=== PATIENT | female | born 1975 | race Caucasian/White ===

== ENCOUNTER → 2018-03-23 | Outpatient (CLI) | payer BC, OTHER ==
[~2018-03-23] MED LIST: GASTROGRAFIN SOLUTION 30ML (Q9963) As Ordered; ISOVUE-370 76% 100ML VIAL (Q9967) As Ordered
== END ==
LOC: M RAD 12:07
DX: R59.0 Localized enlarged lymph nodes (principal); C21.0 Malignant neoplasm of anus, unspecified; K62.5 Hemorrhage of anus and rectum
CPT/HCPCS: Q9963

== ENCOUNTER 2018-04-06 09:38 | Day surgery (SDC) | payer BC, OTHER ==
[2018-04-06] MEDS: NS 1,000 ML IV ×2 (09:53→09:57)
[2018-04-06] MEDS ORDERED: PROPOFOL 200 MG/20 ML VIAL As Ordered ×3 (10:23→11:21)
[2018-04-06] MEDS ORDERED: LIDOCAINE 2% INJ 100 MG/5 ML SDV (FOR ANES.) As Ordered (10:24)
[2018-04-06] MEDS ORDERED: fentaNYL 100 MCG/2 ML INJECTION (J3010) As Ordered (10:28)
== END 2018-04-06 12:28 | disposition home or self-care (01) ==
LOC: M OPP 09:38
DX: K62.5 Hemorrhage of anus and rectum (principal); K64.8 Other hemorrhoids; R10.13 Epigastric pain; K31.89 Other diseases of stomach and duodenum; K29.70 Gastritis, unspecified, without bleeding; K21.9 Gastro-esophageal reflux disease without esophagitis; I95.9 Hypotension, unspecified; C21.0 Malignant neoplasm of anus, unspecified; R23.3 Spontaneous ecchymoses; R87.810 Cervical high risk human papillomavirus (HPV) DNA test positive; M19.90 Unspecified osteoarthritis, unspecified site; F31.9 Bipolar disorder, unspecified; G43.909 Migraine, unspecified, not intractable, without status migrainosus; F90.9 Attention-deficit hyperactivity disorder, unspecified type; R59.9 Enlarged lymph nodes, unspecified; Z86.711 Personal history of pulmonary embolism; G47.8 Other sleep disorders; R06.83 Snoring; N80.9 Endometriosis, unspecified; Z87.442 Personal history of urinary calculi; Z87.440 Personal history of urinary (tract) infections; F17.210 Nicotine dependence, cigarettes, uncomplicated; F12.10 Cannabis abuse, uncomplicated; Z88.2 Allergy status to sulfonamides; Z91.040 Latex allergy status; Z79.899 Other long term (current) drug therapy
CPT/HCPCS: 45378

== ENCOUNTER → 2018-07-02 | Outpatient (CLI) | payer BC, OTHER ==
[~2018-07-02] MED LIST changes: +ADDE1TAB14 PO; +BUSP10TA PO; +CITA20TA4 PO; -GASTROGRAFIN SOLUTION 30ML (Q9963) As Ordered; +IBUP200C25 PO; -ISOVUE-370 76% 100ML VIAL (Q9967) As Ordered; +TRAZ-186 PO; +TYLE500T78 PO
== END ==
LOC: M EKG 09:22
PROVIDERS: ATTEND Registered Nurse
DX: I49.9 Cardiac arrhythmia, unspecified (principal)

== ENCOUNTER 2018-10-01 11:53 | Day surgery (SDC) | payer BC, OTHER ==
[~2018-10-01] VITALS: Ht 170.2 cm; Wt 71.7 kg
[~2018-10-01 11:53] MED LIST changes: +ACET-897 PO; +CELE10TA PO; -CITA20TA4 PO; +CITA20TA6 PO; +CLEN1SOL; +GABA-843 PO; +GABA600T4 PO; +NS 1,000 ML IV ONE; +PROT20TA11 PO; +ZOFR4TAB16 PO
--- NOTE | 2018-10-01 15:24 | ROOR ---
Patient Name: Maura Calero Procedure Date: 10/01/2018 2:21 PM Date of : 1975 Age: 43 Room: [facility] Gender: Female Note Status: Finalized Procedure: Upper GI endoscopy Indications: Dysphagia, Exclusion of Aquino's esophagus Providers: Casimiro Gee MD Referring MD: Ramonita Acevedo NP Requesting Provider: Medicines: Monitored Anesthesia Care Complications: No immediate complications. Procedure: Pre-Anesthesia Assessment: - Prior to the procedure, a History and Physical was performed, and patient medications and allergies were reviewed. The patient is competent. The risks and benefits of the procedure and the sedation options and risks were discussed with the patient. All questions were answered and informed consent was obtained. Patient identification and proposed procedure were verified by the physician, the nurse and the anesthesiologist in the procedure room. Mental Status Examination: alert and oriented. Airway Examination: normal oropharyngeal airway and neck mobility. Respiratory Examination: clear to auscultation. CV Examination: normal. Prophylactic Antibiotics: The patient does not require prophylactic antibiotics. Prior Anticoagulants: The patient has taken no previous anticoagulant or antiplatelet agents. ASA Grade Assessment: III - A patient with severe systemic disease. After reviewing the risks and benefits, the patient was deemed in satisfactory condition to undergo the procedure. The anesthesia plan was to use monitored anesthesia care (MAC). Immediately prior to administration of medications, the patient was re-assessed for adequacy to receive sedatives. The heart rate, respiratory rate, oxygen saturations, blood pressure, adequacy of pulmonary ventilation, and response to care were monitored throughout the procedure. The physical status of the patient was re-assessed after the procedure. The Endoscope was introduced through the mouth, and advanced to the second part of duodenum. The upper GI endoscopy was accomplished without difficulty. The patient tolerated the procedure well. Findings: The Z-line was irregular and was found 43 cm from the incisors. Biopsies were taken with a cold forceps for histology. Verification of patient identification for the specimen was done by the physician and nurse using the patient's name, date and medical record number. Estimated blood loss was minimal. Normal mucosa was found in the entire esophagus. Biopsies were obtained from the proximal and distal esophagus with cold forceps for histology of suspected eosinophilic esophagitis. Patchy minimal inflammation characterized by erythema and granularity was found in the gastric antrum. Biopsies were taken with a cold forceps for Helicobacter pylori testing. The duodenal bulb and second portion of the duodenum were normal. Impression: - Z-line irregular, 43 cm from the incisors. Biopsied. - Normal mucosa was found in the entire esophagus. Biopsied. - Gastritis. Biopsied. - Normal duodenal bulb and second portion of the duodenum. Recommendation: - Patient has a contact number available for emergencies. The signs and symptoms of potential delayed complications were discussed with the patient. Return to normal activities tomorrow. Written discharge instructions were provided to the patient. - Resume previous diet. - Follow an antireflux regimen. - Await pathology results. - Based on the biopsy results you will receive a phone call from GI clinic in 2-3 weeks to review the pathology results AND/OR your results will be faxed to your Primary care physician. - Return to primary care physician. Casimiro Gee MD Casimiro Gee MD 10/01/2018 3:24:45 PM Electronically signed by Casimiro Gee MD Number of Addenda: 0 Note Initiated On: 10/01/2018 2:21 PM Estimated Blood Loss: Estimated blood loss was minimal.
[2018-10-01 15:25] VITALS: BP 100/60
--- NOTE | 2018-10-01 15:29 | ROOR ---
Patient Name: Maura Calero Procedure Date: 10/01/2018 2:22 PM Date of : 1975 Age: 43 Room: [facility] Gender: Female Note Status: Finalized Procedure: Colonoscopy Indications: Abnormal CT of the GI tract Providers: Casimiro Gee MD Referring MD: Ramonita Acevedo NP Requesting Provider: Medicines: Monitored Anesthesia Care Complications: No immediate complications. Procedure: Pre-Anesthesia Assessment: - Prior to the procedure, a History and Physical was performed, and patient medications and allergies were reviewed. The patient is competent. The risks and benefits of the procedure and the sedation options and risks were discussed with the patient. All questions were answered and informed consent was obtained. Patient identification and proposed procedure were verified by the physician, the nurse and the anesthesiologist in the procedure room. Mental Status Examination: alert and oriented. Airway Examination: normal oropharyngeal airway and neck mobility. Respiratory Examination: clear to auscultation. CV Examination: normal. Prophylactic Antibiotics: The patient does not require prophylactic antibiotics. Prior Anticoagulants: The patient has taken no previous anticoagulant or antiplatelet agents. ASA Grade Assessment: III - A patient with severe systemic disease. After reviewing the risks and benefits, the patient was deemed in satisfactory condition to undergo the procedure. The anesthesia plan was to use monitored anesthesia care (MAC). Immediately prior to administration of medications, the patient was re-assessed for adequacy to receive sedatives. The heart rate, respiratory rate, oxygen saturations, blood pressure, adequacy of pulmonary ventilation, and response to care were monitored throughout the procedure. The physical status of the patient was re-assessed after the procedure. The Colonoscope was introduced through the anus and advanced to the terminal ileum, with identification of the appendiceal orifice and IC valve. The colonoscopy was performed without difficulty. The patient tolerated the procedure well. The quality of the bowel preparation was good. The terminal ileum, ileocecal valve, appendiceal orifice, and rectum were photographed. Scope insertion time was 3 minutes. Scope withdrawal time was 9 minutes. The total duration of the procedure was 12 minutes. Findings: The perianal and digital rectal examinations were normal. The terminal ileum appeared normal. Two sessile polyps were found in the rectum. The polyps were 3 to 6 mm in size. These polyps were removed with a cold biopsy forceps. Resection and retrieval were complete. Verification of patient identification for the specimen was done by the physician and nurse using the patient's name, date and medical record number. Estimated blood loss was minimal. Many small-mouthed diverticula were found in the sigmoid colon. There was no evidence of diverticular bleeding. Normal mucosa was found in the entire colon. Four biopsies were obtained in the rectum with cold forceps for histology. Non-bleeding external and internal hemorrhoids were found during retroflexion. The hemorrhoids were medium-sized. Impression: - The examined portion of the ileum was normal. - Two 3 to 6 mm polyps in the rectum, removed with a cold biopsy forceps. Resected and retrieved. - Moderate diverticulosis in the sigmoid colon. There was no evidence of diverticular bleeding. - Normal mucosa in the entire examined colon. - Non-bleeding external and internal hemorrhoids. - Four biopsies were obtained in the rectum. Recommendation: - Patient has a contact number available for emergencies. The signs and symptoms of potential delayed complications were discussed with the patient. Return to normal activities tomorrow. Written discharge instructions were provided to the patient. - High fiber diet. - Continue present medications. - Await pathology results. - Repeat colonoscopy in 3 - 5 years for surveillance based on pathology results. - Based on the biopsy results you will receive a phone call from GI clinic in 2-3 weeks to review the pathology results AND/OR your results will be faxed to your Primary care physician. - Return to primary care physician. Casimiro Gee MD Casimiro Gee MD 10/01/2018 3:28:16 PM Electronically signed by Casimiro Gee MD Number of Addenda: 0 Note Initiated On: 10/01/2018 2:22 PM Estimated Blood Loss: Estimated blood loss was minimal.
== END 2018-10-01 15:51 | disposition home or self-care (01) ==
LOC: M OPP 11:53
PROVIDERS: ATTEND Internal Medicine Gastroenterology
DX: K57.30 Diverticulosis of large intestine without perforation or abscess without bleeding (principal); K64.8 Other hemorrhoids; K62.1 Rectal polyp; R93.3 Abnormal findings on diagnostic imaging of other parts of digestive tract; K22.8 Other specified diseases of esophagus; K29.70 Gastritis, unspecified, without bleeding; R13.10 Dysphagia, unspecified